=== PATIENT | female | born 1990 | race Caucasian/White ===

== ENCOUNTER 2020-10-05 12:47 | Inpatient (IN) ==
--- OUTSIDE RECORDS SUMMARY | 2020-10-05 12:49 | External Medical Summary | Continuity of Care Document ---
:1990 Author Name Edwardo Kauffman, Provider Address Unavailable Unavailable , Care Team Providers Name Role Phone NonMNPG Daly, Provider Unavailable [email or web address] Unavailable Unavailable Unavailable Unavailable Unavailable Problems History of Former smoker (V15.82) (Z87.891) Status: Resolved Encounter for routine gynecological exam ination with Papanicolaou smear of cervix (V72.31) (Z01.419) Allergies and Adverse Reactions No Known Drug Allergies (Allergy) Medications Claritin CAPS Refills: 0 Procedures History of wisdom tooth extraction Statu s: Completed Immunizations Meningo (Menactra) On: 21-Nov-2018 14:29 Lot #: [id number], SANO[employer] PA[employer]UR Family History aunt Family history of malignant neoplasm of breast (V16.3) (Z80. 3) Status: Active Social History - Smoking Status Ex-smoker Ex-smoker Plan of Treatment Planned Observations Planned Goals not documented Results No Known Results Results not documented Encounters Appointment; Med [facility], Nursing Station 21-Nov-2018 14:00 Encounter Diagnosis: Problem not documented
--- OUTSIDE RECORDS SUMMARY | 2020-10-05 12:49 | External Medical Summary | Continuity of Care Document ---
:1990 Author Name Edwardo Kauffman, Provider Address Unavailable Unavailable , Care Team Providers Name Role Phone NonMNPG Daly, Provider Unavailable [email or web address] Unavailable Unavailable Unavailable Unavailable Unavailable Problems Encounter for routine gynecological exam ination with Papanicolaou smear of cervix (V72.31) (Z01.419) History of Former smoker (V15.82) (Z87.891) Status: Resolved Allergies and Adverse Reactions No Known Drug Allergies (Allergy) Medications Claritin CAPS Refills: 0 Procedures History of wisdom tooth extraction Statu s: Completed Immunizations Meningo (Menactra) On: 21-Nov-2018 14:29 Lot #: [id number], SAN[employer]FI PA[employer]UR Family History aunt Family history of malignant neoplasm of breast (V16.3) (Z80. 3) Status: Active Social History - Smoking Status Ex-smoker Ex-smoker Plan of Treatment Planned Observations Planned Goals not documented Results No Known Results Results not documented Encounters Appointment; Med [facility], Nursing Station 21-Nov-2018 14:00 Encounter Diagnosis: Problem not documented
[2020-10-05] MEDS ORDERED: fentaNYL citrate 100 MCG/2 ML VIAL ONE ×3 (13:02→16:08)
[2020-10-05] MEDS ORDERED: ONDANSETRON INJ 2 MG/ML 2 ML VIAL ONE ×2 (13:06→16:07)
[2020-10-05 13:18] LABS: Basophils # (auto) 0.02 K/uL (0-0.2); Basophils % (auto) 0.2 %; Eosinophils # (auto) 0.16 K/uL (0-0.5); Eosinophils % (auto) 1.8 %; Hematocrit (blood only) 40.8 % (37-47); Hemoglobin 13.9 g/dL (12.0-16.0); Immature Granulocytes # (auto) 0.01 K/uL (0.00-0.02); Immature Granulocytes % (auto) 0.1 %; Lymphocytes # (auto) 3.07 K/uL (1.2-3.4); Lymphocytes % (auto) 34.8 %; Mean Corpuscular Hemoglobin 29.7 pg (25-34); Mean Corpuscular Hgb Conc 34.1 g/dL (32-36); Mean Corpuscular Volume 87.2 fL (80-100); Mean Platelet Volume 11.1 fL (7.4-10.4); Monocytes % (auto) 7.9 %; Neutrophils # (auto) 4.87 K/uL (1.4-6.5); Neutrophils % (auto) 55.2 %; Platelet Count 253 K/uL (130-400); RDW Coefficient of Variation 12.6 % (11.5-14.5); RDW Standard Deviation 40.2 fL (36.4-46.3); Red Blood Count 4.68 M/uL (4.2-5.4); White Blood Count 8.83 K/uL (4.8-10.8)
[2020-10-05] MEDS ORDERED: ceFAZolin 2000MG 2,000 MG/15 ML SYR IV ONE (13:25)
--- NOTE | 2020-10-05 13:25 | Emergency Department Note ---
Impression & Plan Open left ankle fracture, Hypokalemia, High serum chloride ED Provider Note NAME: SAM CABRERA AGE: 30 SEX: F : 1990 ARRIVES VIA: Walk-In INFORMANT: Patient ED PROVIDER(S): Ermias Schwab DO CHIEF COMPLAINT: Left ankle pain HPI: Patient is a 30-year-old female who presents ER for severe left ankle pain. She was walking the dog which pulled her and she twisted and rotated her ankle. She was unable to walk. She notes no pain when she was is at rest. Severe pain with movement. Denies any tingling or numbness. Tetanus is up-to-date. No headache or change in vision. No chest pain or shortness of breath. Did not hit her head or neck. ROS: See above HPI for pertinent positives & negatives. A total of 10 systems reviewed and were otherwise negative. PAST MEDICAL HISTORY:See Below PAST SURGICAL HISTORY:See Below FAMILY HISTORY:See Below SOCIAL HISTORY:See Below HOME MEDICATIONS:See Below ALLERGIES:See Below VITALS:See Below PHYSICAL EXAMINATION: GENERAL: Sitting up in bed, alert, well appearing, well nourished, no distress, non-toxic HEAD:NC/AT EYE EXAM: normal conjunctiva. OROPHARYNX: no exudate, no erythema, lips, buccal mucosa, and tongue normal and mucous membranes are moist NECK: supple, no nuchal rigidity, no adenopathy, non-tender LUNGS: Clear to auscultation. Normal chest wall mechanics HEART: no murmurs, S1 normal and S2 normal ABDOMEN: abdomen soft, non-tender, normo-active bowel sounds, no masses, no rebound or guarding. UPPER EXTREMITIES: upper extremities are grossly normal. LOWER EXTREMITIES: No tenderness over left hip, femur or proximal knee/tib-fib. Left ankle is rotated laterally and appears dislocated with a puncture wound over the right medial malleolus and a laceration at the base of the first toe mild venous oozing. No tenderness throughout the entire right lower extremity on palpation. DPs and PTs 2 out of 4. Gross station intact. NEURO EXAM: Normal sensorium, cranial nerves II-XII grossly intact, normal speech, no gross weakness of arms.. MEDICAL DECISION MAKING: Patient is a 30-year-old female who presents the ER for an obvious dislocation of the left ankle which is rotated laterally. She has a puncture wound over the right medial malleolus. On initial exam there is clear tenting of the skin. IV was established blood work was obtained. She after verbal consent was obtained given 75 mcgs of fentanyl and traction was placed ankle was reduced sig nificantly. Patient had pulses before and following. After this I called orthopedics as does appear to be an open fracture. She is given 2 g of Unasyn. She was given IV fluids and pain medications. Orthopedics present at bedside. X-ray was obtained following reduction and showed a partial dislocation which I think reoccurred as I initially did not splint her as I thought she was going to the OR. He reduce this at bedside. She was splinted by Arvind and will be taken to the OR. Covid test was negative. Triage Nursing notes reviewed. Limited review of prior medical records performed Vital Signs: reviewed and remarkable for no significant abnormalities Differential diagnosis: Fracture, subluxation, dislocation, contusion, ligamentous injury, neurovascular, compartment syndrome, rhabdomyolysis, as well as other pathologies. ER treatment provided: See below Diagnostics interpreted by me: ECG: none Cardiac Monitoring: An order was placed for continuous cardiac monitoring. The monitor shows a rate of 70 with sinus rhythm. Laboratory studies: As stated above and show below. Imaging studies: X-rays show fracture dislocation left ankle Consultation(s): Discussed with Arvind from not any orthopedics who evaluated patient bedside Procedures: Fracture dislocation of left ankle Indication: Tenting over the medial malleolus with obvious dislocation Verbal consent obtained. Risks and benefits were explained with the usual customary discussion. A time out was taken. Neurovascular examination before the procedure revealed intact. The left ankle dislocation was reduced by placing the patient prone and applying gentle downward inline traction on the foot while rotating the foot medially. This resulted in significant improvement of the dislocation. Neurovascular examination after the procedure revealed intact. The patient had significant pain relief and tolerated the procedure well. Critical Care: I have personally spent 32 minutes of critical care time in the direct management of this patient. This includes bedside care, interpretation of diagnostic studies, and testing, discussion with consultants, patient, and family members, and other required patient management activities. This 32 minutes is in excess of all separately billable procedures. Past Med/Surg History Medical History Allergic rhinitis Hypokalemia Surgical History H/O wisdom tooth extraction Social History Smoking Status: Never smoker Feels Safe at Home: Yes Allergies Allergies Allergy/AdvReac Type Severity Reaction Status Date / Time No Known Allergies Allergy Unverified 10/05/20 14:26 Home Meds Home Medications Medication Instructions Recorded Confirmed Herbal Blend For Pms 2 tabs PO DAILY PRN 10/05/20 10/05/20 cetirizine [Zyrtec] 10 mg PO DAILY 10/05/20 10/05/20 jaylene iolh-asrkkpgu-ijopotijr ac 1 cap PO DAILY 10/05/20 10/05/20 [[place] Oil] lactobacillus combination no.4 0 mmu cells PO DAILY 10/05/20 10/05/20 [Probiotic] Results & Data (ED) Vital Signs Vital Signs - 24 hr 10/05/20 12:51 10/05/20 13:13 10/05/20 13:37 Temperature 37.3 C Temperature Source Oral Pulse Rate 76 90 84 Pulse Rate [Finger] Pulse Rate from SpO2 Sensor 79 86 Pulse Rhythm Regular Pulse Rhythm [Finger] Pulse Strength [Finger] Respiratory Rate 23 20 Respiratory Effort / Characteristics Respiratory Depth Respiratory Pattern Blood Pressure 135/87 Blood Pressure [Left Arm] Blood Pressure Mean 103 Blood Pressure Mean [Left Arm] Blood Pressure Position [Left Arm] Pulse Oximetry 100 100 98 Oxygen Delivery Method Room Air Room Air Sepsis Recent Fever Within 48 Hours No Sepsis New/Unexplained Change in Mental Status No Sepsis Action Taken by Nursing No Action Required 10/05/20 14:00 10/05/20 14:06 10/05/20 14:30 Temperature Temperature Source Pulse Rate 87 70 69 Pulse Rate [Finger] Pulse Rate from SpO2 Sensor 85 74 69 Pulse Rhythm Pulse Rhythm [Finger] Pulse Strength [Finger] Respiratory Rate 23 22 16 Respiratory Effort / Characteristics Respiratory Depth Respiratory Pattern Blood Pressure 154/76 H Blood Pressure [Left Arm] Blood Pressure Mean 102 Blood Pressure Mean [Left Arm] Blood Pressure Position [Left Arm] Pulse Oximetry 100 99 100 Oxygen Delivery Method Room Air Sepsis Recent Fever Within 48 Hours Sepsis New/Unexplained Change in Mental Status Sepsis Action Taken by Nursing 10/05/20 14:42 10/05/20 14:43 10/05/20 15:00 Temperature Temperature Source Pulse Rate 64 65 67 Pulse Rate [Finger] Pulse Rate from SpO2 Sensor 65 67 Pulse Rhythm Pulse Rhythm [Finger] Pulse Strength [Finger] Respiratory Rate 15 15 15 Respiratory Effort / Characteristics Respiratory Depth Respiratory Pattern Blood Pressure 128/74 127/86 Blood Pressure [Left Arm] Blood Pressure Mean 92 99 Blood Pressure Mean [Left Arm] Blood Pressure Position [Left Arm] Pulse Oximetry 100 100 100 Oxygen Delivery Method Room Air Sepsis Recent Fever Within 48 Hours Sepsis New/Unexplained Change in Mental Status Sepsis Action Taken by Nursing 10/05/20 16:00 Temperature 37.4 C Temperature Source Oral Pulse Rate Pulse Rate [Finger] 74 Pulse Rate from SpO2 Sensor Pulse Rhythm Pulse Rhythm [Finger] Regular Pulse Strength [Finger] Normal Respiratory Rate 18 Respiratory Effort / Characteristics Non-Labored Spontaneous Respiratory Depth Normal Respiratory Pattern Regular Blood Pressure Blood Pressure [Left Arm] 130/83 Blood Pressure Mean Blood Pressure Mean [Left Arm] 98 Blood Pressure Position [Left Arm] Sitting Pulse Oximetry 99 Oxygen Delivery Method Room Air Sepsis Recent Fever Within 48 Hours Sepsis New/Unexplained Change in Mental Status Sepsis Action Taken by Nursing Laboratory Data Result diagrams: 10/05/20 12:59 10/05/20 12:59 Lab Results 10/05/20 10/05/20 10/05/20 Range/Units 12:59 12:59 13:49 WBC 8.83 (4.8-10.8) K/uL RBC 4.68 (4.2-5.4) M/uL Hgb 13.9 (12.0-16.0) g/dL Hct 40.8 (37-47) % MCV 87.2 (80-100) fL MCH 29.7 (25-34) pg MCHC 34.1 (32-36) g/dL RDW Std Deviation 40.2 (36.4-46.3) fL RDW Coeff of Agueda 12.6 (11.5-14.5) % Plt Count 253 (130-400) K/uL MPV 11.1 H (7.4-10.4) fL Immature Gran % (Auto) 0.1 % Neut % (Auto) 55.2 % Lymph % (Auto) 34.8 % Garland % (Auto) 7.9 % Eos % (Auto) 1.8 % Baso % (Auto) 0.2 % Neut # (Auto) 4.87 (1.4-6.5) K/uL Lymph # (Auto) 3.07 (1.2-3.4) K/uL Garland # (Auto) 0.70 H (0.11-0.59) K/uL Eos # (Auto) 0.16 (0-0.5) K/uL Baso # (Auto) 0.02 (0-0.2) K/uL Immature Gran # (Auto) 0.01 (0.00-0.02) K/uL Sodium 141 (136-145) mmol/L Potassium 3.2 L (3.5-5.1) mmol/L Chloride 109 H (98-107) mmol/L Carbon Dioxide 26 (21-32) mmol/L Anion Gap 6.0 (3-11) BUN 15 (7-18) mg/dl Creatinine 0.80 (0.6-1.2) mg/dl Est Cr Clr Drug Dosing 88.6 ml/min Est GFR ( Amer) 113.1 Est GFR (Non-Af Amer) 97.6 BUN/Creatinine Ratio 19.1 (10-20) Glucose 96 (70-99) mg/dl Calcium 9.1 (8.5-10.1) mg/dl Total Bilirubin 0.6 (0.2-1) mg/dl AST 17 (15-37) U/L ALT 18 (12-78) U/L Alkaline Phosphatase 39 L (45-117) U/L Total Protein 7.2 (6.4-8.2) gm/dl Albumin 4.1 (3.4-5.0) gm/dl Globulin 3.1 (2.5-4.0) gm/dl Albumin/Globulin Ratio 1.3 (0.9-2) POC Ur Test (NEG) COVID-19 Eval Order CovFluRsv at [facility] SARS-CoV-2 (PCR) (Negative) Influenza Type A (PCR) (Neg) Influenza Type B (PCR) (Neg) RSV (RT-PCR) (Neg) 10/05/20 10/05/20 Range/Units 13:49 15:49 WBC (4.8-10.8) K/uL RBC (4.2-5.4) M/uL Hgb (12.0-16.0) g/dL Hct (37-47) % MCV (80-100) fL MCH (25-34) pg MCHC (32-36) g/dL RDW Std Deviation (36.4-46.3) fL RDW Coeff of Agueda (11.5-14.5) % Plt Count (130-400) K/uL MPV (7.4-10.4) fL Immature Gran % (Auto) % Neut % (Auto) % Lymph % (Auto) % Garland % (Auto) % Eos % (Auto) % Baso % (Auto) % Neut # (Auto) (1.4-6.5) K/uL Lymph # (Auto) (1.2-3.4) K/uL Garland # (Auto) (0.11-0.59) K/uL Eos # (Auto) (0-0.5) K/uL Baso # (Auto) (0-0.2) K/uL Immature Gran # (Auto) (0.00-0.02) K/uL Sodium (136-145) mmol/L Potassium (3.5-5.1) mmol/L Chloride (98-107) mmol/L Carbon Dioxide (21-32) mmol/L Anion Gap (3-11) BUN (7-18) mg/dl Creatinine (0.6-1.2) mg/dl Est Cr Clr Drug Dosing ml/min Est GFR ( Amer) Est GFR (Non-Af Amer) BUN/Creatinine Ratio (10-20) Glucose (70-99) mg/dl Calcium (8.5-10.1) mg/dl Total Bilirubin (0.2-1) mg/dl AST (15-37) U/L ALT (12-78) U/L Alkaline Phosphatase (45-117) U/L Total Protein (6.4-8.2) gm/dl Albumin (3.4-5.0) gm/dl Globulin (2.5-4.0) gm/dl Albumin/Globulin Ratio (0.9-2) POC Ur Test NEG (NEG) COVID-19 Eval Order SARS-CoV-2 (PCR) NEGATIVE (Negative) Influenza Type A (PCR) Negative (Neg) Influenza Type B (PCR) Negative (Neg) RSV (RT-PCR) Negative (Neg) Administered Medications Discontinued Medications Bacitracin (Bacitracin Inj 50,000 Unit Vial) Confirm Administered Dose 50,000 units .ROUTE .STK-MED ONE Stop: 10/05/20 15:52 Last Admin: 10/05/20 18:03 Dose: 50,000 units Documented by: [id number] Bacitracin (Bacitracin Inj 50,000 Unit Vial) Confirm Administered Dose 50,000 units .ROUTE .STK-MED ONE Stop: 10/05/20 16:13 Last Admin: 10/05/20 18:04 Dose: 50,000 units Documented by: [id number] Bupivacaine HCl/Epinephrine Bitart (Bupivacaine/Epinephrine 0.5% Mpf 1:200,000 30 Ml Vial) Confirm Administered Dose 30 ml .ROUTE .STK-MED ONE Stop: 10/05/20 16:06 Last Admin: 10/05/20 18:09 Dose: 30 ml Documented by: [id number] Fentanyl Citrate (Fentanyl Citrate 100 Mcg/2 Ml Vial) Confirm Administered Dose 100 mcg .ROUTE .STK-MED ONE Stop: 10/05/20 13:03 Last Admin: 10/05/20 13:10 Dose: 75 mcg Documented by: [id number] Fentanyl Citrate (Fentanyl Citrate 100 Mcg/2 Ml Vial) Confirm Administered Dose 100 mcg .ROUTE .STK-MED ONE Stop: 10/05/20 13:55 Last Admin: 10/05/20 14:00 Dose: 75 mcg Documented by: [id number] Cefazolin Sodium (Ancef 2000mg) 2,000 mg in 15 mls @ 3.75 mls/min IV PREOP ONE; Protocol Stop: 10/05/20 13:28 Last Admin: 10/05/20 14:15 Dose: 3.75 mls/min Documented by: [id number] Cefazolin Sodium (Ancef 1000mg) 1,000 mg in 7.5 mls @ 2.5 mls/min IV ONCE ONE Stop: 10/05/20 16:43 Last Admin: 10/05/20 16:39 Dose: 2.5 mls/min Documented by: [id number] Ondansetron HCl (Ondansetron Inj 2 Mg/Ml 2 Ml Vial) Confirm Administered Dose 4 mg .ROUTE .STK-MED ONE Stop: 10/05/20 13:07 Last Admin: 10/05/20 13:16 Dose: Not Given Documented by: [id number] Imaging Data Radiologist's Impression: Ankle X-Ray 10/05/20 12:57 LEFT ANKLE 2 VIEWS CLINICAL HISTORY: Left ankle injury. FINDINGS: Crosstable AP and lateral views of the left ankle are obtained. No prior studies are available for comparison at the time of dictation. The skeleta l structures are well mineralized. There is a comminuted and mildly displaced spiral fracture of the distal fibula. There is a posterior malleolar fracture of the distal tibia with a dorsally displaced fragment. There is dislocation at the ankle joint, with widening of the medial joint space and lateral displacement of the talus by approximately 9 mm. There is also dorsal displacement of the talus at the tibiotalar joint by approximately 12 mm. There is associated joint effusion. Soft tissue edema is present around the ankle. IMPRESSION: Fracture/dislocation at the ankle joint as above. Electronically signed by: Armando Rosario M.D. 10/05/2020 1:21 PM Chest X-Ray 10/05/20 13:49 XR chest 1V portable HISTORY: Cough. Resp sx c/w COVID-19 COMPARISON: None. FINDINGS: The lungs are clear. Cardiac silhouette is normal in size. No pleural effusions. No pneumothorax. IMPRESSION: No acute process. ACT 112: Negative or not required by law. Electronically signed by: Raúl Ortiz M.D. 10/05/2020 2:34 PM Ankle X-Ray 10/05/20 15:57 FL ankle LT min 3V RTN CLINICAL HISTORY: ORIF LT ANKLE FX COMPARISON STUDY: Left ankle 10/05/2020. FLUOROSCOPY TIME: 12 seconds. FINDINGS: 5 fluoroscopic spot images of the left ankle demonstrate internal fixation of the lateral malleolus fracture with a lateral cortical plate and screws. The hardware appears intact. Alignment is near-anatomic. IMPRESSION: Status post internal fixation of a distal left fibular fracture. The hardware appears intact. ACT 112: Negative or not required by law. Electronically signed by: Raúl Ortiz M.D. 10/05/2020 6:17 PM Discharge Plan Visit Data Chief Complaint: Ankle Pain Stated Complaint: LT ANKLE ED Provider: Ermias Schwab Discharge Problem: Open left ankle fracture, Hypokalemia, High serum chloride Patient Disposition: Admitted As Inpatient Discharge Instructions Interventions: ED Discharge Assessment Last Done: 10/05/20 16:00 Discharge Problem: Open left ankle fracture Qualifiers: Encounter type: initial encounter
[2020-10-05 13:26] LABS: Albumin Level 4.1 gm/dl (3.4-5.0); BUN Creatinine Ratio 19.1 (10-20); Calcium 9.1 mg/dl (8.5-10.1); Creatinine Clr Calc Pharmacy 88.6 ml/min; Est GFR (African American) 113.1; Est GFR (Non-African American) 97.6; Potassium 3.2 mmol/L (3.5-5.1)
[2020-10-05 13:29] LABS: Albumin Globulin Ratio 1.3 (0.9-2); Bilirubin,Total 0.6 mg/dl (0.2-1); Globulin 3.1 gm/dl (2.5-4.0); Total Protein 7.2 gm/dl (6.4-8.2)
--- NOTE | 2020-10-05 14:31 | History & Physical Report ---
Date of Service October 05, 2020 Assessment & Plan (1) Open left ankle fracture: Xrays reviewed with Dr. Lopez. She last ate around noon today. She will be npo now. I did perform a closed reduction of the ankle and splinting in the ER. The wound was cleansed with betadine and betadine soaked 4 x4's applied under the splint. We will plan on taking her to the OR today for open reduction internal fixation of left ankle, and irrigation/debridement of left ankle. Procedure explained including risks, benefits, alternatives. Procedure note: She was given some fentanyl from the ER staff. I flexed her knee over the side of the bed and performed a closed reduction of the left ankle. Betadine soaked 4 x4's were applied to the wound and a plaster splint was applied. Her ankle looked anatomically aligned after reduction. Post reduction xrays ordered/obtained. She tolerated the procedure well. No complications. History of Present Illness Chief Complaint: . Open left ankle fracture Primary Care Provider: NO PCP . Yohana is a 30 year old female, grad student at [employer], who suffered an open left ankle fracture today. She was walking a dog and it pulled, causing her to twist and injure her ankle. No other orthopedic complaints. She was brought to the ER and xrays showed a posterior ankle dislocation with distal fibula fracture. Reduction was attempted by the ER attending physician and we were consulted. Allergies Allergy/AdvReac Type Severity Reaction Status Date / Time No Known Allergies Allergy Unverified 10/05/20 14:26 Home Medications Medication Instructions Recorded Confirmed Type Herbal Blend For Pms 2 tabs PO DAILY PRN 10/05/20 10/05/20 History cetirizine [Zyrtec] 10 mg PO DAILY 10/05/20 10/05/20 History jaylene fsyn-czcspfto-zsgtyxvos ac 1 cap PO DAILY 10/05/20 10/05/20 History [[place] Oil] lactobacillus combination no.4 0 mmu cells PO DAILY 10/05/20 10/05/20 History [Probiotic] Past Med/Surg History Medical History Allergic rhinitis Hypokalemia Surgical History H/O wisdom tooth extraction Social History Smoking Status: Never smoker Feels Safe at Home: Yes Review of Systems All systems reviewed & are unremarkable except as noted in HPI & below. Physical Exam . Constitutional well developed and well nourished; no acute distress Respiratory normal respiratory effort Cardiovascular palpable dorsalis pedis pulse before and after reduction. Brisk refill. Musculoskeletal obvious deformity of the left ankle. She has an open wound medially with some blood. Can move her toes appropriately Skin open wound medial ankle Neurologic sensation intact to touch Psychiatric Orientation: alert and oriented x 3 Results & Data Results & Data Laboratory Results . Diagnostic Findings . xray of left ankle shows posterior ankle dislocation with distal fibula fracture PG Care Time/CCT Total # of Minutes Spent Total Time Spent with Patient: Total time spent is greater than 50% in coordination of care (as documented) at patient's floor/unit and/or counseling patient: Coding Level of Care Code 80528 Initial Inpt Care Lvl 3 (57 - DECISION FOR SURGERY) Diagnoses Open left ankle fracture S82.892B
--- NOTE | 2020-10-05 14:36 | XRay Report ---
XR chest 1V portable HISTORY: Cough. Resp sx c/w COVID-19 COMPARISON: None. FINDINGS: The lungs are clear. Cardiac silhouette is normal in size. No pleural effusions. No pneumot horax. IMPRESSION: No acute process. ACT 112: Negative or not required by law. Electronically signed by: Raúl Ortiz M.D. 10/05/2020 2:34 PM
[2020-10-05 14:37] LABS: Influenza A virus by PCR Negative (Neg); Influenza B virus by PCR Negative (Neg); RSV by PCR Negative (Neg); SARS CoV2 RNA(COVID-19) InHosp NEGATIVE (Negative)
[2020-10-05] MEDS ORDERED: MoRPHine SULFATE 4 MG/ML 1 ML CARP\\VIAL IV PRN (15:41)
[2020-10-05] MEDS ORDERED: MoRPHine SULFATE 2 MG/ML CARP IV PRN (15:41)
[2020-10-05] MEDS ORDERED: BACITRACIN INJ 50,000 UNIT VIAL ONE ×2 (15:51→16:12)
[2020-10-05] MEDS ORDERED: BUPIVACAINE/EPINEPHRINE 0.5% MPF 1:200,000 30 ML VIAL ONE (16:05)
[2020-10-05] MEDS ORDERED: MIDAZOLAM HCL 1 MG/ML 2ML VIAL ONE (16:07)
[2020-10-05] MEDS ORDERED: PROPOFOL IV EMULSION 10 MG/ML 20 ML VIAL IV ONE (16:07)
[2020-10-05] MEDS ORDERED: LIDOCAINE HCL 2% 2 ML VIAL/AMP(20MG/ML) INFIL ONE (16:07)
[2020-10-05] MEDS ORDERED: GLYCOPYRROLATE 0.2 MG/ML VIAL ONE (16:07)
[2020-10-05] MEDS ORDERED: DEXAMETHASONE SOD INJ 4 MG/ML VIAL ONE ×2 (16:07→16:37)
[2020-10-05] MEDS ORDERED: NEOSTIGMINE METHYLSULFATE 5 MG/5 ML SYR ONE (16:07)
--- NOTE | 2020-10-05 16:12 | Anesthesiology Consultation ---
Date of Service October 05, 2020 Covid 19 negative today. The patient ate lunch around 1200. At 1220 she was walking a dog that pulled her and she tripped and fell. She did not hit her head but now has an open left ankle fracture. Assessment & Plan (1) Encounter for pre-operative examination: Chart Review Chart Review: Acceptable Risk for Surgery (emergency surgery) and Patient NOT seen in Pre Admission Testing Consults Requested none History Surgery Operation Date: 10/05/20 12:20 Proposed Procedures p Open Reduction Internal Fixation of Open Left Ankle Fracture, - Barrera Lopez MD s Incision and Drainage Ankle - Barrera Lopez MD Height/Weight Height: 5 ft 7 in Weight: 55.6 kg Allergies Allergy/AdvReac Type Severity Reaction Status Date / Time No Known Allergies Allergy Unverified 10/05/20 14:26 Medications Home Medications Medication Instructions Recorded Confirmed Last Taken Herbal Blend For Pms 2 tabs PO DAILY PRN 10/05/20 10/05/20 Unknown cetirizine [Zyrtec] 10 mg PO DAILY 10/05/20 10/05/20 Unknown jaylene auyl-jyqablzf-epfsidiqp ac 1 cap PO DAILY 10/05/20 10/05/20 Unknown [[place] Oil] lactobacillus combination no.4 0 mmu cells PO DAILY 10/05/20 10/05/20 Unknown [Probiotic] NPO Date Last Intake of Fluids: 10/05/20 Time Last Intake of Fluids: 12:00 Date Last Intake of Solids: 10/05/20 Time Last Intake of Solids: 12:00 Past Medical History Medical History Allergic rhinitis Hypokalemia Past Surgical History Surgical History H/O wisdom tooth extraction Social History Smoking Status: Never smoker Physical Exam Vital Signs Last Vital Signs Temp 37.4 C 10/05/20 16:00 Pulse 74 10/05/20 16:00 Resp 18 10/05/20 16:00 BP 130/83 10/05/20 16:00 Pulse Ox 99 10/05/20 16:00 Testing Laboratory Results 10/05/20 12:59 10/05/20 12:59 10/05/20 15:49 POC Ur Test NEG Chest X-Ray Date: 10/05/20 Findings: + NAD
[2020-10-05] MEDS ORDERED: HYDROmorphone INJ 1 MG/ML SYRINGE IV PRN (16:17)
[2020-10-05] MEDS ORDERED: ATROPINE SULFATE 0.1 MG/ML 10ML SYR IV PRN (16:17)
[2020-10-05] MEDS ORDERED: LABETALOL HCL IV 5 MG/ML 20ML IV PRN (16:17)
[2020-10-05] MEDS ORDERED: MEPERIDINE HCL 25 MG/ML CARP/VIAL IV PRN (16:17)
[2020-10-05] MEDS ORDERED: fentaNYL citrate 100 MCG/2 ML VIAL IV PRN (16:17)
[2020-10-05] MEDS ORDERED: ONDANSETRON INJ 2 MG/ML 2 ML VIAL IV PRN ×2 (16:17→19:54)
[2020-10-05] MEDS ORDERED: PHENYLEPHRINE 100MCG/ML 5ML SYR IV PRN (16:17)
[2020-10-05] MEDS ORDERED: ePHEDrine sulfate 50 MG/ML AMP IV PRN (16:17)
--- NOTE | 2020-10-05 16:21 | History & Physical Bridge Note ---
Date of Service October 05, 2020 History & Physical Bridge Note I have examined the patient, reviewed the History & Physical and in the interval since the performance of the History & Physical I have noted the following changes of clinical significance: no changes noted
[2020-10-05] MEDS ORDERED: ceFAZolin 1000MG 1,000 MG/7.5 ML SYR IV ONE (16:41)
[2020-10-05] MEDS ORDERED: HYDROmorphone INJ 2 MG/ML SYR/VIAL ONE (17:09)
--- NOTE | 2020-10-05 18:18 | Fluoroscopy Report ---
FL ankle LT min 3V RTN CLINICAL HISTORY: ORIF LT ANKLE FX COMPARISON STUDY: Left ankle 10/05/2020. FLUOROSCOPY TIME: 12 seconds. FINDINGS: 5 fluoroscopic spot images of the left ankle demonstrate internal fixation of the lateral m alleolus fracture with a lateral cortical plate and screws. The hardware appears intact. Alignment is near-anatomic. IMPRESSION: Status post internal fixation of a distal left fibular fracture. The hardware appears int act. ACT 112: Negative or not required by law. Electronically signed by: Raúl Ortiz M.D. 10/05/2020 6:17 PM
--- NOTE | 2020-10-05 18:51 | Operative Report ---
Post Operative Report Pre & Post Diagnosis Operation Date: 10/05/20 12:20 Pre-Op Diagnosis: Left grade 2 open ankle fracture/dislocation Post-Op Diagnosis: Left grade 2 open ankle fracture/dislocation I identified the patient and participated in the time-out.: Yes Procedure Operation Date: 10/05/20 12:20 Actual Procedures p Open Reduction Internal Fixation of Open Left Ankle Fracture,(Left) - Barrera Lopez MD s Incision and Drainage Left Ankle(Left) - Barrera oLpez MD Surgeon Barrera Lopez MD Agriculture Research Director MELODY Gonzalez Estimated Blood Loss 20 Findings Consistent with Post-Op Diagnosis Operative findings revealed an open wound over the anteromedial aspect of her ankle which extend into the ankle joint. There was not gross contamination. The fibula fracture laterally was quite comminuted. There was a osteochondral defect of the anterior portion of the talar dome which is only articulating in dorsiflexion. 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 She was apparently walking her dog when her dog got distracted by another dog and took off. She injured her ankle. She had acute onset of pain and deformity. She is brought to the emergency room where x-rays and clinical exam revealed an open ankle fracture dislocation. She underwent a irrigation debridement splinting in the ER along with IV antibiotics. She is indicated for surgical irrigation debridement and ORIF. Description of Procedure Operative implants consist of: 1. Synthes 10 hole one third semitubular stainless steel locking plate 2. 3.5 fully threaded cortical screws x8 3. 3.5 cortical locking screw x1 4. 4.0 fully threaded cancellous screw x1. The patient was taken to the operating room, identified, and placed on the operating table supine position. All contact areas were properly padded. A general anesthetic was employed by anesthesia team. A left thigh turn was then placed. The left lower extremity splint was removed. We cleaned all the splint material off her leg with some alcohol. The left leg was then scrubbed with Hibiclens. The left lower extremity was then prepped with Hibiclens and then draped in the usual sterile fashion. Attention was first drawn to the irrigation debridement. Left leg was elevated exsanguinated with use of an Esmarch and turns placed at 3 mmHg. The I did saucerized the skin edges out of the wound which was measured about 2 cm in length. I then extended this both proximally and distally. Extended just medial to the tibialis anterior tendon. This 1 when it right in the ankle joint. We opened this up and irrigated with 3 L of pulsatile lavage solution. We irrigated extensively. There was not gross contamination. Once this was complete the tourniquet was let down for turn time 7 minutes. Hemostasis assured use electrocautery. The drapes were then taken down. Of the left lower extremity was then prepped with ChloraPrep and draped in the usual sterile fashion. An entire new set up and gown and gloves were all changed to start the second part of the operation. The left leg was then elevated and exsanguinated with use of an Esmarch and turns placed at 300 mmHg. Direct lateral approach to the fibula was then performed to a longitudinal incision over the lateral aspect of the fibula. Sharp dissection carried through subcutaneous tissue directly down the fibula. A branch of the superficial peroneal nerve was identified and retracted anteriorly and protected throughout the case. The fracture site was opened. There was some comminution of the fracture. I had to piece this back together and held it with some K wires. I then placed 2 lag screws from anterior to posterior in the standard fashion which provided temporary and excellent initial fixation. A 10 hole one third semitubular locking plate was then contoured to the posterior lateral aspect of fibula. It was fixed proximally with five 3.5 cortical screws and then distally with one 3.5 cortical screw, one 4.0 fully threaded cancellous screw, and one 3.5 locking screw. X-ray was then brought in. Fracture was anatomically aligned. I stressed the mortise and there is no medial gapping or syndesmosis gapping. We checked this laterally and there was no further subluxation. Attention drawn toward closing. Nupathe the wound was irrigated copious amounts of irrigation. I did inject locally with 30 cc of half percent Marcaine with epinephrine. The periosteum over the plate was closed with 0 Vicryl suture in a [id number] fashion. The tourniquet was then let down for second tourniquet time 87 minutes. Hemostasis assured use electrocautery. The wounds once again irrigated. The lateral incision was closed with 2 layers with a deep layer 2-0 Vicryl suture and the skin with a 3-0 nylon suture. The medial incision was just closed with simple three-point 0 nylon sutures. We were able to close the wound. The wound was then cleaned and sterile dressing was Xeroform, 4 x 4's, sterile cast padding and a well-padded posterior and stirrup splint were applied. Patient was then brought out of general anesthesia and transferred to the recovery room in stable condition. The patient tolerated the procedure well and there were no complications. Arvind Gonzalez, my physician assistant research scientist, was present for the entire procedure. His assistance was essential and required for proper patient positioning, prepping and draping, surgical exposure, retraction, placement of the hardware, closure of the wound, placement of the sterile postoperative splint. I attest to the content of the Intraoperative Record and any orders documented therein. Any exceptions are noted below.
--- NOTE | 2020-10-05 19:25 | Anesthesiology Progress Note ---
Date of Service October 05, 2020 Anesthesia Post Procedure Vital Signs Vital Signs: Temp Pulse Pulse Pulse Resp BP BP 10/05/20 19:15 37.1 C 57 L 13 112/71 10/05/20 19:05 64 14 122/82 10/05/20 18:55 55 L 14 122/79 10/05/20 18:45 68 19 118/67 10/05/20 18:38 36.5 C 74 16 127/82 10/05/20 16:00 37.4 C 74 18 130/83 10/05/20 15:00 67 15 127/86 10/05/20 14:43 65 15 10/05/20 14:42 64 15 128/74 10/05/20 14:30 69 16 10/05/20 14:06 70 22 154/76 H 10/05/20 14:00 87 23 10/05/20 13:37 84 20 10/05/20 13:13 90 10/05/20 12:51 37.3 C 76 23 135/87 Pulse Ox 10/05/20 19:15 98 10/05/20 19:05 100 10/05/20 18:55 100 10/05/20 18:45 100 10/05/20 18:38 100 10/05/20 16:00 99 10/05/20 15:00 100 10/05/20 14:43 100 10/05/20 14:42 100 10/05/20 14:30 100 10/05/20 14:06 99 10/05/20 14:00 100 10/05/20 13:37 98 10/05/20 13:13 100 10/05/20 12:51 100 Transfer of Care Handoff Completed per policy Notes Mental Status: alert / awake / arousable and participated in evaluation Patient Amnestic to Procedure: Yes Nausea / Vomiting: adequately controlled Pain: adequately controlled Airway Patency, RR, SpO2: stable & adequate BP & HR: stable & adequate Hydration State: stable & adequate Anesthetic Complications: no major complications apparent and Pt Satisfied with anesthetic care
[2020-10-05] MEDS ORDERED: oxyCODONE HCL IR 5 MG TAB (IMMEDIATE RELEASE) PO PRN (19:54)
[2020-10-05] MEDS ORDERED: METOCLOPRAMIDE HCL INJ 5 MG/ML 2 ML VIAL IV PRN (19:54)
[2020-10-05] MEDS ORDERED: diphenhydrAMINE Capsule 25 MG CAP PO PRN (19:54)
[2020-10-05] MEDS ORDERED: HYDROmorphone INJ 0.5 MG/0.5 ML SYR IV PRN (19:54)
[2020-10-05] MEDS ORDERED: [UNRECOGNIZED DRUG - OTHER] PO PRN (19:54)
[2020-10-05] MEDS ORDERED: ALUMINUM/MAGNESIUM SUSP 30 ML UDC PO PRN (19:54)
[2020-10-05] MEDS ORDERED: bisacodyL 10 MG SUPP PR PRN (19:54)
[2020-10-05] MEDS ORDERED: MAGNESIUM HYDROXIDE SUSP 30 ML UDC PO PRN (19:54)
[2020-10-05] MEDS ORDERED: NALOXONE HCL 0.4 MG/1 ML VIAL/CARP IV PRN (19:54)
[2020-10-05] MEDS: SODIUM CHLORIDE 0.9% 1000ML 1,000 ML IV SCH (20:15)
[2020-10-05] MEDS ORDERED: SENNA 8.6 MG TAB PO SCH (21:00)
[2020-10-05] MEDS: DOCUSATE SODIUM 100 MG CAP PO SCH (21:55)
[2020-10-05] MEDS: ACETAMINOPHEN 500 MG TAB PO SCH (21:56)
[2020-10-05] MEDS: KETOROLAC 30 MG/ML VIAL IV SCH (21:57)
[2020-10-05] MEDS: ASPIRIN 81 MG ECTAB PO SCH (21:57)
[2020-10-05] MEDS: ceFAZolin 1000MG 1,000 MG/7.5 ML SYR IV SCH (23:57)
[2020-10-06] MEDS: KETOROLAC 30 MG/ML VIAL IV SCH ×2 (04:19→09:14)
[2020-10-06] MEDS: ACETAMINOPHEN 500 MG TAB PO SCH (06:05)
[2020-10-06] MEDS: SODIUM CHLORIDE 0.9% 1000ML 1,000 ML IV SCH (06:17)
[2020-10-06] MEDS: ceFAZolin 1000MG 1,000 MG/7.5 ML SYR IV SCH (08:48)
[2020-10-06] MEDS ORDERED: [UNRECOGNIZED DRUG - OTHER] PO SCH (09:00)
[2020-10-06] MEDS ORDERED: MULTIVITAMIN TAB PO SCH (09:00)
[2020-10-06] MEDS ORDERED: CETIRIZINE HCL 10 MG TABLET PO SCH (09:00)
[2020-10-06] MEDS: DOCUSATE SODIUM 100 MG CAP PO SCH (09:13)
[2020-10-06] MEDS: ASPIRIN 81 MG ECTAB PO SCH (09:13)
--- NOTE | 2020-10-06 10:22 | Progress Notes ---
DATE: 10/06/2020 SUBJECTIVE: A 30-year-old female now postop day 1 from I and D and ORIF of a grade 2 open ankle fracture. She is doing pretty well. Pain seems to be controlled. Had a reasonable night. Denies any new complaints. OBJECTIVE: VITAL SIGNS: Temperature 36.8. Vital signs stable. EXTREMITIES: Examination of the left leg reveals the splint to be in place. The ankle looks well aligned. She can dorsiflex and plantar toes appropriately. Fairly mild swelling. She is neurologically intact. ASSESSMENT: A 30-year-old female postop day 1 from ORIF of the open grade 2 ankle fracture along with the I and D. She is doing pretty well. Pain seems to be controlled. She is neurologically intact. PLAN: 1. DVT prophylaxis including thigh-high TEDs, SCDs, and aspirin twice a day. 2. PT/OT. She is nonweightbearing on the left leg. 3. Pain control, doing okay with current pain regimen. 4. Antibiotics. We will give her 24 hours of postoperative antibiotics and then probably 5 days of p.o. on the outside. 5. Disposition: Plan to discharge to home likely later today.
--- NOTE | 2020-10-08 06:31 | Discharge Summary ---
Date of Service October 08, 2020 Discharge Data Consultations 10/05/20 13:25 ED Decision to Admit Stat Procedures Performed Operation Date: 10/05/20 12:20 Actual Procedures p Open Reduction Internal Fixation of Open Left Ankle Fracture,(Left) - Barrera Lopez MD s Incision and Drainage Left Ankle(Left) - Barrera Lopez MD Hospital Course (1) Open left ankle fracture: This patient is a 30 year old female admitted on 10/05/20 with an open ankle fracture and underwent I & D, ORIF of the ankle fracture. She tolerated the procedure well and there were no complications. Transferred to the PACU post op and later to the orthopedic floor for further care. She was given ancef for antibiotic prophylaxis. She was also given WENDY stockings, SCDs, and aspirin for DVT prophylaxis. Vital signs were monitored during her hospital stay and remained stable. Did not require any blood transfusions. There were no co mplications during her hospital stay. By post op day #1 the patient was tolerating a vegetarian diet, pain was reasonably controlled with oral pain medicine, and she was participating in physical therapy. On post op day #1 the patient was discharged home. She was given printed discharge instructions including prescriptions for extra strength tylenol, aspirin, cafadroxil, and oxycodone. She was instructed to be nonweightbearing on the left leg. Keep splint clean, dry, intact. Follow up approximately 2 weeks post op or sooner if there are problems or concerns. Coding Level of Care Code None Diagnoses Open left ankle fracture S82.892B Encounter type: initial encounter
== END 2020-10-06 11:15 | disposition home or self-care (01) | DRG 494 ==
LOC: ED 12:47 → ASU 14:16 → 3N 18:43